=== PATIENT | female | born 1955 | race Caucasian/White ===

== ENCOUNTER 2018-05-01 14:45 | Emergency (ER) | payer MEDICARE, OTHER ==
[~2018-05-01] VITALS: Ht 165.1 cm; Wt 72.8 kg
[~2018-05-01 14:45] MED LIST: ACYC200C PO; ALBU8.5H8 INH; BECL8.7A7 INH; CARB15DR EACHEYE; DULO-31 PO; HYDR-3972 PO; LEVE250T PO; LISI10TA4 PO; METO5TAB98 PO; PANT-47 PO; PHEN32.43 PO; PRAZ5CAP2 PO; TOP100T PO; VAL5T PO; VERA120T96 PO
[2018-05-01 14:49] VITALS: BP 159/95
[2018-05-01] MEDS ORDERED: HYDROcodone/acetaminophen 10/325mg tab PO ONE (16:15)
== END 2018-05-01 16:22 | disposition home or self-care (01) ==
LOC: ER 14:45
DX: M71.21 Synovial cyst of popliteal space [Baker], right knee (principal); I10 Essential (primary) hypertension; G89.29 Other chronic pain; E11.9 Type 2 diabetes mellitus without complications; F12.90 Cannabis use, unspecified, uncomplicated; Z86.73 Personal history of transient ischemic attack (TIA), and cerebral infarction without residual deficits; Z98.890 Other specified postprocedural states; Z88.1 Allergy status to other antibiotic agents; Z91.040 Latex allergy status; Z88.8 Allergy status to other drugs, medicaments and biological substances; Z79.899 Other long term (current) drug therapy
CPT/HCPCS: 93971; 99284

== ENCOUNTER 2018-08-14 09:56 | Day surgery (SDC) | payer MEDICARE, MEDICAID ==
[2018-08-14] MEDS ORDERED: DESV100T PO (11:24)
[2018-08-14] MEDS ORDERED: ONDA8TAB9 PO (11:26)
[2018-08-14] MEDS ORDERED: LIDOcaine/PRILOcaine 5gm cream TP ONE ×2 (11:28→11:58)
== END 2018-08-14 12:55 | disposition home or self-care (01) ==
LOC: WOUND CARE 09:56
PROVIDERS: ATTEND Surgery
DX: T21.35XA Burn of third degree of buttock, initial encounter (principal); S31.819A Unspecified open wound of right buttock, initial encounter; E11.9 Type 2 diabetes mellitus without complications; I10 Essential (primary) hypertension; G89.29 Other chronic pain; F12.90 Cannabis use, unspecified, uncomplicated; Z79.899 Other long term (current) drug therapy; Z86.73 Personal history of transient ischemic attack (TIA), and cerebral infarction without residual deficits; X08.8XXA Exposure to other specified smoke, fire and flames, initial encounter; X58.XXXA Exposure to other specified factors, initial encounter; Y93.89 Activity, other specified; Y92.89 Other specified places as the place of occurrence of the external cause; Y99.8 Other external cause status
CPT/HCPCS: 11042; A6223; A6021; A6212

== ENCOUNTER 2018-08-21 10:15 | Outpatient (CLI) | payer MEDICARE, MEDICAID ==
[~2018-08-21 10:15] MED LIST changes: -CARB15DR EACHEYE; +DESV100T PO; -DULO-31 PO; -HYDR-3972 PO; -LEVE250T PO; +ONDA8TAB9 PO; -PANT-47 PO; -PHEN32.43 PO; -PRAZ5CAP2 PO; -VAL5T PO
== END 2018-08-21 11:08 | disposition home or self-care (01) ==
LOC: WOUND CARE 10:15
PROVIDERS: ATTEND Surgery
DX: T21.35XD Burn of third degree of buttock, subsequent encounter (principal); S31.819D Unspecified open wound of right buttock, subsequent encounter; E11.9 Type 2 diabetes mellitus without complications; I10 Essential (primary) hypertension; G89.29 Other chronic pain; F12.90 Cannabis use, unspecified, uncomplicated; Z79.899 Other long term (current) drug therapy; Z86.73 Personal history of transient ischemic attack (TIA), and cerebral infarction without residual deficits; X08.8XXD Exposure to other specified smoke, fire and flames, subsequent encounter; X58.XXXD Exposure to other specified factors, subsequent encounter
CPT/HCPCS: 99211; A6223; A6021; A6213

== ENCOUNTER 2018-08-30 08:47 | Day surgery (SDC) | payer MEDICARE, MEDICAID ==
[2018-08-30] MEDS ORDERED: LIDOcaine 2% 5ml jelly MM ONE (11:50)
== END 2018-08-30 10:22 | disposition home or self-care (01) ==
LOC: WOUND CARE 08:47
PROVIDERS: ATTEND Surgery
DX: T21.35XD Burn of third degree of buttock, subsequent encounter (principal); S31.819D Unspecified open wound of right buttock, subsequent encounter; E11.9 Type 2 diabetes mellitus without complications; I10 Essential (primary) hypertension; G89.29 Other chronic pain; F12.90 Cannabis use, unspecified, uncomplicated; Z79.899 Other long term (current) drug therapy; Z86.73 Personal history of transient ischemic attack (TIA), and cerebral infarction without residual deficits; X08.8XXD Exposure to other specified smoke, fire and flames, subsequent encounter; X58.XXXD Exposure to other specified factors, subsequent encounter
CPT/HCPCS: 97597; A6021; A6206; A6212

== ENCOUNTER 2018-09-06 08:25 | Day surgery (SDC) | payer MEDICARE, MEDICAID ==
[2018-09-06] MEDS ORDERED: LIDOcaine/PRILOcaine 5gm cream TP ONE (09:54)
== END 2018-09-06 10:44 | disposition home or self-care (01) ==
LOC: WOUND CARE 08:25
PROVIDERS: ATTEND Surgery
DX: T21.35XD Burn of third degree of buttock, subsequent encounter (principal); S31.819D Unspecified open wound of right buttock, subsequent encounter; E11.9 Type 2 diabetes mellitus without complications; I10 Essential (primary) hypertension; G89.29 Other chronic pain; F12.90 Cannabis use, unspecified, uncomplicated; Z79.899 Other long term (current) drug therapy; Z86.73 Personal history of transient ischemic attack (TIA), and cerebral infarction without residual deficits; X08.8XXD Exposure to other specified smoke, fire and flames, subsequent encounter; X58.XXXD Exposure to other specified factors, subsequent encounter
CPT/HCPCS: 97597; A6021; A6212

== ENCOUNTER 2018-09-07 14:44 | Inpatient (IN) | payer MEDICARE, MEDICAID ==
[~2018-09-07] VITALS: Ht 167.6 cm; Wt 64.0 kg
[2018-09-07] MEDS ORDERED: levetiracetam inj 1,000 MG in normal saline 100ml IV soln 90 ML IV ONE (14:55)
[2018-09-07] MEDS ORDERED: normal saline 1000ML IV soln IV ONE (14:55)
[2018-09-07 15:08] LABS: BASOPHILS % (AUTO) 0.4 % (0-1); EOSINOPHILS # (AUTO) 0.3 X10'3 (0-0.9); EOSINOPHILS % (AUTO) 2.8 % (0-6); HEMATOCRIT 41.8 % (35.0-45.0); HEMOGLOBIN 13.4 g/dl (12.0-16.0); LYMPHOCYTES # (AUTO) 2.8 X10'3 (1.1-4.8); LYMPHOCYTES % (AUTO) 31.8 % (21-51); MEAN CORPUSCULAR HEMOGLOBIN 31.4 PG (27.0-31.0); MEAN CORPUSCULAR HGB CONC 32.1 % (33.0-36.5); MEAN CORPUSCULAR VOLUME 97.6 FL (78-98); MEAN PLATELET VOLUME 9.9 FL (7.4-10.4); MONOCYTES # (AUTO) 0.6 X10'3 (0-0.9); MONOCYTES % (AUTO) 6.3 % (2-12); NEUTROPHILS # (AUTO) 5.3 X10'3 (1.8-7.7); NEUTROPHILS % (AUTO) 58.7 % (42-75); PLATELET COUNT 211 X10'3 (140-440); RED BLOOD COUNT 4.28 X10'6 (4.20-5.60); RED CELL DISTRIBUTION WIDTH 14.4 % (11.5-14.5)
[2018-09-07 15:26] LABS: PARTIAL THROMBOPLASTIN TIME 27 SECONDS (22-32); PROTHROMBIN TIME 10.2 SECONDS (9.0-12.0)
[2018-09-07 15:27] LABS: ALANINE AMINOTRANSFERASE 22 U/L (12-78); ALBUMIN 3.3 G/DL (3.4-5.0); ALBUMIN/GLOBULIN RATIO 0.9 (1.1-1.5); ALKALINE PHOSPHATASE 88 IU/L (46-116); ANION GAP 14 (8-16); ASPARTATE AMINO TRANSFERASE 15 U/L (10-37); BILIRUBIN,TOTAL 0.3 MG/DL (0.1-1.0); BLOOD UREA NITROGEN 13 MG/DL (7-18); BUN/CREATININE RATIO 18.8 (6.6-38.0); CALCIUM 8.3 MG/DL (8.5-10.1); CHLORIDE 108 MMOL/L (99-107); CREATININE 0.69 MG/DL (0.40-0.90); GLUCOSE 108 MG/DL (70-104); MAGNESIUM 1.8 MG/DL (1.5-2.4); POTASSIUM 3.6 MMOL/L (3.5-5.1); SODIUM 142 MMOL/L (135-145); TOTAL CARBON DIOXIDE 19.9 MMOL/L (24-32); TOTAL PROTEIN 6.8 G/DL (6.4-8.2); eGFR 86 ML/MIN
--- NOTE | 2018-09-07 15:37 | NUR ---
PAGED CT 1770
[2018-09-07 16:20] LABS: CLARITY,URINE SLIGHTLY CLOUDY (Clear); COLOR,URINE YELLOW (Yellow); GLUCOSE, URINE NEGATIVE (Neg); KETONES,URINE NEGATIVE (Neg); LEUKOCYTE ESTERASE ,URINE NEGATIVE (Neg); NITRITES, URINE NEGATIVE (Neg); OCCULT BLOOD,URINE NEGATIVE (Neg); PROTEIN,URINE NEGATIVE (Neg); UROBILINOGEN,URINE 0.2 E.U/dL (0.2-1.0)
[2018-09-07 16:25] LABS: UA COLLECTION TYPE CLN CATCH MIDSTREAM
[2018-09-07 16:34] LABS: AMORPHOUS PHOSPHATES 1+; BACTERIA,URINE NONE SEEN /HPF (Neg); RBC,URINE NONE SEEN /HPF (0-2); SQUAMOUS EPITHELIAL CELL,UR FEW /LPF (FEW); WBC,URINE 0-4 /HPF (0-4)
[2018-09-07] MEDS ORDERED: ondansetron/PF 4mg/2ml inj IV ONE (16:50)
[2018-09-07] MEDS ORDERED: LORazepam 2 mg/ml vial ONE ×2 (17:25→19:54)
[2018-09-07] MEDS ORDERED: LORazepam 2 mg/ml vial IV ONE ×2 (17:25→20:00)
--- NOTE | 2018-09-07 17:56 | NUR ---
PATIENT HAS HAD THREE SEZUIRES SINCE BEING IN ER LASTING ROUGHLY 60 SECS
[2018-09-07] MEDS ORDERED: ketorolac trometh. 30mg/ml inj. IV ONE (18:00)
[2018-09-07] MEDS ORDERED: magnesium hydroxide 30ml (MOM) UD suspension PO PRN (18:05)
[2018-09-07] MEDS ORDERED: acetaminophen 325mg tablet PO PRN ×2 (18:05)
[2018-09-07] MEDS ORDERED: ondansetron/PF 4mg/2ml inj IV PRN (18:05)
[2018-09-07] MEDS ORDERED: potassium Cl 20 mEq SR tablet PO PRN ×2 (18:05)
[2018-09-07] MEDS: morphine 4 MG/ML inj SYRINge IV PRN ×2 (18:37→23:56)
--- NOTE | 2018-09-07 19:53 | NUR ---
Patient received from ER and placed in room CICU 2006. I have received report from CORINNA Sandra and had the opportunity to ask questions and assume patient care.
[2018-09-07] MEDS ORDERED: LORazepam 2 mg/ml vial IM ONE (19:55)
[2018-09-07 20:00] VITALS: BP 143/90
--- NOTE | 2018-09-07 20:05 | NUR ---
Patient had conic tonic seizure lasting 30 seconds with 4-5 minute postictal period. Ativan 2mg was given. Will continue monitor.
[2018-09-07] MEDS: HYDROcodone/acetaminophen 10/325mg tab PO PRN (20:51)
[2018-09-07 21:00] VITALS: BP 173/89
[2018-09-07 22:00] VITALS: BP 154/74
[2018-09-07 23:00] VITALS: BP 152/88
[2018-09-07] MEDS ORDERED: LORazepam 2 mg/ml vial IV PRN (23:35)
--- NOTE | 2018-09-07 23:45 | NUR ---
Patient had two seizures last two minutes each with a 30 second pause in between and five minute postictal period. Ativan was given for seizures and morphine was given for her headache. Will continue to monitor.
[2018-09-08] VITALS (23 sets, daily range): BP systolic 101–169; BP diastolic 58–95
[2018-09-08] MEDS: LORazepam 2 mg/ml vial IV PRN ×3 (01:52→22:03)
--- NOTE | 2018-09-08 04:22 | NUR ---
Patient was given Ativan for seizure like activity. 1 minute of activity with a 30 second pause, followed by another minute of seizure like activity. A couple of minutes later she had 20 seconds of seizure like activity. Patients extremities became really rigid during this time, arms pulled up towards her chin, eyes rolled back and to the right, and was clenching her teeth with occasional lip smacking. Patient's postictal period last 5 minutes then fell asleep. Will continue to monitor.
[2018-09-08 05:39] LABS: BASOPHILS % (AUTO) 0.3 % (0-1); EOSINOPHILS # (AUTO) 0.2 X10'3 (0-0.9); EOSINOPHILS % (AUTO) 3.1 % (0-6); HEMATOCRIT 37.2 % (35.0-45.0); HEMOGLOBIN 12.1 g/dl (12.0-16.0); LYMPHOCYTES # (AUTO) 1.3 X10'3 (1.1-4.8); LYMPHOCYTES % (AUTO) 22.2 % (21-51); MEAN CORPUSCULAR HEMOGLOBIN 31.4 PG (27.0-31.0); MEAN CORPUSCULAR HGB CONC 32.4 % (33.0-36.5); MEAN CORPUSCULAR VOLUME 96.8 FL (78-98); MEAN PLATELET VOLUME 9.9 FL (7.4-10.4); MONOCYTES # (AUTO) 0.5 X10'3 (0-0.9); MONOCYTES % (AUTO) 8.4 % (2-12); NEUTROPHILS # (AUTO) 3.8 X10'3 (1.8-7.7); PLATELET COUNT 171 X10'3 (140-440); RED BLOOD COUNT 3.84 X10'6 (4.20-5.60); RED CELL DISTRIBUTION WIDTH 14.5 % (11.5-14.5); WHITE BLOOD COUNT 5.7 X10'3 (4.5-11.0)
[2018-09-08 05:57] LABS: ALBUMIN 2.9 G/DL (3.4-5.0); ANION GAP 10 (8-16); BLOOD UREA NITROGEN 12 MG/DL (7-18); BUN/CREATININE RATIO 17.1 (6.6-38.0); CALCIUM 7.6 MG/DL (8.5-10.1); CHLORIDE 110 MMOL/L (99-107); GLUCOSE 90 MG/DL (70-104); MAGNESIUM 1.9 MG/DL (1.5-2.4); POTASSIUM 3.6 MMOL/L (3.5-5.1); SODIUM 142 MMOL/L (135-145); eGFR 85 ML/MIN
[2018-09-08 06:04] LABS: PROTHROMBIN TIME 10.5 SECONDS (9.0-12.0)
--- NOTE | 2018-09-08 06:30 | NUR ---
Patient in room CICU 2007. I have received report from CORINNA Leslie and had the opportunity to ask questions and assume patient care.
--- NOTE | 2018-09-08 06:49 | NUR ---
Problems reprioritized. Patient report given, questions answered & plan of care reviewed with CORINNA Schmitz.
[2018-09-08] MEDS: levetiracetam 250mg tablet PO SCH ×2 (08:16→19:56)
[2018-09-08] MEDS ORDERED: KEP500T PO (08:25)
[2018-09-08] MEDS ORDERED: LEVE250T4 PO (08:26)
[2018-09-08] MEDS: HYDROcodone/acetaminophen 10/325mg tab PO PRN ×2 (15:01→21:15)
[2018-09-08] MEDS: PRISTIQ 100 MG PO SCH (18:58)
[2018-09-08] MEDS: morphine 4 MG/ML inj SYRINge IV PRN (20:07)
[2018-09-09] VITALS (24 sets, daily range): BP systolic 100–153; BP diastolic 46–88
[2018-09-09] MEDS: morphine 4 MG/ML inj SYRINge IV PRN ×5 (03:17→22:28)
--- NOTE | 2018-09-09 06:30 | NUR ---
Patient in room CICU 2007. I have received report from CORINNA Leslie and had the opportunity to ask questions and assume patient care.
--- NOTE | 2018-09-09 06:51 | NUR ---
Problems reprioritized. Patient report given, questions answered & plan of care reviewed with CORINNA Brooks.
[2018-09-09 07:20] LABS: BASOPHILS % (AUTO) 0.6 % (0-1); EOSINOPHILS # (AUTO) 0.4 X10'3 (0-0.9); EOSINOPHILS % (AUTO) 8.7 % (0-6); HEMATOCRIT 37.3 % (35.0-45.0); HEMOGLOBIN 12.6 g/dl (12.0-16.0); LYMPHOCYTES # (AUTO) 1.6 X10'3 (1.1-4.8); LYMPHOCYTES % (AUTO) 33.6 % (21-51); MEAN CORPUSCULAR HEMOGLOBIN 33.1 PG (27.0-31.0); MEAN CORPUSCULAR HGB CONC 33.7 % (33.0-36.5); MEAN CORPUSCULAR VOLUME 98.2 FL (78-98); MEAN PLATELET VOLUME 10.1 FL (7.4-10.4); MONOCYTES # (AUTO) 0.4 X10'3 (0-0.9); MONOCYTES % (AUTO) 7.3 % (2-12); NEUTROPHILS # (AUTO) 2.5 X10'3 (1.8-7.7); NEUTROPHILS % (AUTO) 49.8 % (42-75); PLATELET COUNT 171 X10'3 (140-440); RED CELL DISTRIBUTION WIDTH 13.3 % (11.5-14.5); WHITE BLOOD COUNT 4.9 X10'3 (4.5-11.0)
[2018-09-09 07:26] LABS: ALBUMIN 2.9 G/DL (3.4-5.0); ANION GAP 10 (8-16); BLOOD UREA NITROGEN 18 MG/DL (7-18); BUN/CREATININE RATIO 29.5 (6.6-38.0); CALCIUM 8.1 MG/DL (8.5-10.1); CHLORIDE 109 MMOL/L (99-107); CREATININE 0.61 MG/DL (0.40-0.90); GLUCOSE 83 MG/DL (70-104); POTASSIUM 3.6 MMOL/L (3.5-5.1); SODIUM 142 MMOL/L (135-145); TOTAL CARBON DIOXIDE 22.8 MMOL/L (24-32); eGFR > 90 ML/MIN
[2018-09-09 07:40] LABS: PROTHROMBIN TIME 10.3 SECONDS (9.0-12.0)
[2018-09-09] MEDS: LORazepam 2 mg/ml vial IV PRN ×2 (07:57→23:07)
[2018-09-09] MEDS: PRISTIQ 100 MG PO SCH (08:00)
[2018-09-09] MEDS: levetiracetam 250mg tablet PO SCH ×2 (08:02→19:42)
--- NOTE | 2018-09-09 13:45 | NUR ---
Accompanied patient throughout MRI, patient had one tonic clonic seizure @1255, 3 minutes long. Patient given 2mg ativan IV. Patient had another seizure @ 1328, 2 minutes long. Hands clenched, held up to chest, teeth grinding, body stiff. HR and RR within normal limits. Patient aware of seizure. Arousable by name. Patient rushed back to room 2006 on ICU after second seizure post MRI.
--- NOTE | 2018-09-09 15:00 | NUR ---
informed dr. diaz about MRI results, no new orders given.
--- NOTE | 2018-09-09 18:30 | NUR ---
Problems reprioritized. Patient report given, questions answered & plan of care reviewed with CORINNA KEITH.
--- NOTE | 2018-09-09 18:57 | NUR ---
Patient in room CICU 2006. I have received report from Yoana WEINSTEIN and had the opportunity to ask questions and assume patient care.
[2018-09-09] MEDS: HYDROcodone/acetaminophen 10/325mg tab PO PRN (19:42)
--- NOTE | 2018-09-09 20:00 | NUR ---
Pt. appears fatigued and moderately lethargic. Assisted to sit up in bed to eat meal. Appetite is good. Taking PO fluids well. No seizure activity noted. Pt. is calm and sleeping interm. Repositioned f/comfort. C/O constant, severe head pain.
--- NOTE | 2018-09-09 21:35 | NUR ---
Patient in room CICU 2010. I have received report from Nanci WEINSTEIN and had the opportunity to ask questions and assume patient care. Patient transferred from room 2006 to 2010 via hospital bed, patient tolerated well.
--- NOTE | 2018-09-09 22:09 | NUR ---
Problems reprioritized. Patient report given, questions answered & plan of care reviewed with Emelina WEINSTEIN.
[2018-09-10] VITALS (23 sets, daily range): BP systolic 112–163; BP diastolic 8–90
[2018-09-10] MEDS: HYDROcodone/acetaminophen 10/325mg tab PO PRN ×2 (02:56→19:12)
--- NOTE | 2018-09-10 03:05 | NUR ---
Patient awake, asking for pain medication. HR in low 60s in sinus rhythm, patient oriented to time/place. Patient fell back asleep easily after taking norco. Will continue to monitor for seizure activity.
[2018-09-10] MEDS: morphine 4 MG/ML inj SYRINge IV PRN (05:09)
[2018-09-10 05:57] LABS: BASOPHILS % (AUTO) 0.6 % (0-1); EOSINOPHILS # (AUTO) 0.4 X10'3 (0-0.9); EOSINOPHILS % (AUTO) 7.4 % (0-6); HEMATOCRIT 37.7 % (35.0-45.0); HEMOGLOBIN 12.3 g/dl (12.0-16.0); LYMPHOCYTES # (AUTO) 1.9 X10'3 (1.1-4.8); LYMPHOCYTES % (AUTO) 34.7 % (21-51); MEAN CORPUSCULAR HEMOGLOBIN 32.1 PG (27.0-31.0); MEAN CORPUSCULAR HGB CONC 32.6 % (33.0-36.5); MEAN CORPUSCULAR VOLUME 98.3 FL (78-98); MEAN PLATELET VOLUME 10.1 FL (7.4-10.4); MONOCYTES # (AUTO) 0.4 X10'3 (0-0.9); MONOCYTES % (AUTO) 7.8 % (2-12); NEUTROPHILS # (AUTO) 2.7 X10'3 (1.8-7.7); NEUTROPHILS % (AUTO) 49.5 % (42-75); PLATELET COUNT 165 X10'3 (140-440); RED BLOOD COUNT 3.83 X10'6 (4.20-5.60); RED CELL DISTRIBUTION WIDTH 13.6 % (11.5-14.5); WHITE BLOOD COUNT 5.4 X10'3 (4.5-11.0)
--- NOTE | 2018-09-10 06:23 | NUR ---
Patient in room CICU 2010. I have received report from Katelyn and had the opportunity to ask questions and assume patient care.
[2018-09-10 06:27] LABS: ALBUMIN 2.9 G/DL (3.4-5.0); ANION GAP 10 (8-16); BLOOD UREA NITROGEN 19 MG/DL (7-18); BUN/CREATININE RATIO 28.4 (6.6-38.0); CHLORIDE 110 MMOL/L (99-107); CREATININE 0.67 MG/DL (0.40-0.90); GLUCOSE 84 MG/DL (70-104); POTASSIUM 3.5 MMOL/L (3.5-5.1); SODIUM 144 MMOL/L (135-145); TOTAL CARBON DIOXIDE 23.7 MMOL/L (24-32); eGFR 89 ML/MIN
--- NOTE | 2018-09-10 06:32 | NUR ---
Problems reprioritized. Patient report given, questions answered & plan of care reviewed with Estephania WEINSTEIN. Addendum: 09/10/18 at 2210 by Katelyn Morse RN Report given to Anabel WEINSTEIN, doug Best
[2018-09-10 06:43] LABS: PROTHROMBIN TIME 10.5 SECONDS (9.0-12.0)
[2018-09-10] MEDS: LORazepam 2 mg/ml vial IV PRN ×4 (08:30→20:46)
--- NOTE | 2018-09-10 08:39 | NUR ---
0825 pt sitting up in bed, groaning, drooling, pt unable to communicate with me, suctioned oral airway, patient chin noted to have rhythmic contractions, bilateral arms decorticate, administered 2mg ativan, 0831 pt relaxed, said "I'm sorry", no recollection of this am, or place. Pt tearful. Reoriented to room, vs stable.
[2018-09-10] MEDS: levetiracetam 250mg tablet PO SCH ×2 (09:44→19:12)
[2018-09-10] MEDS: PRISTIQ 100 MG PO SCH (09:55)
[2018-09-10] MEDS ORDERED: FOSphenytoin 100mg/2ml inj IV ONE (10:15)
[2018-09-10] MEDS ORDERED: FOSphenytoin 500mg inj. 1,000 MG in normal saline 100ml IV soln 80 ML IV ONE (10:35)
--- NOTE | 2018-09-10 10:49 | NUR ---
1025 after changing pts bedding, seizure activity began, unable to speak, hands in fists, decorticate hands/wrists, K Genna COPE and Dr Napoles at bedside, seizure witnessed. Plan is to d/c Pristiq at this time, due to serotonin uptake inhibitor and norepinephrine inducer, thereby lowering the seizure threshold. Adding cerebyx to medication regime. No beds available to transfer to [facility]. Plan is treat medically, control seizures.
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
--- NOTE | 2018-09-10 18:31 | NUR ---
Problems reprioritized. Patient report given, questions answered & plan of care reviewed with Katelyn.
[2018-09-10] MEDS: FOSphenytoin 100mg/2ml inj IV SCH (19:13)
[2018-09-10] MEDS: hydrOXYzine 10 MG tablet PO PRN (22:40)
--- NOTE | 2018-09-10 23:30 | NUR ---
Walked in to patient's room, found patient laying on her side with PIV pulled out of her L finger. Cannula intact. No active bleeding noted. Will continue to monitor patient.
[2018-09-11] VITALS (24 sets, daily range): BP systolic 113–159; BP diastolic 60–92
[2018-09-11] MEDS: FOSphenytoin 100mg/2ml inj IV SCH ×3 (03:51→20:00)
[2018-09-11] MEDS: HYDROcodone/acetaminophen 10/325mg tab PO PRN ×3 (03:52→16:24)
[2018-09-11 06:06] LABS: BASOPHILS % (AUTO) 0.4 % (0-1); EOSINOPHILS # (AUTO) 0.5 X10'3 (0-0.9); EOSINOPHILS % (AUTO) 8.3 % (0-6); HEMATOCRIT 36.2 % (35.0-45.0); HEMOGLOBIN 12.1 g/dl (12.0-16.0); LYMPHOCYTES # (AUTO) 2.1 X10'3 (1.1-4.8); LYMPHOCYTES % (AUTO) 39.1 % (21-51); MEAN CORPUSCULAR HEMOGLOBIN 32.8 PG (27.0-31.0); MEAN CORPUSCULAR HGB CONC 33.3 % (33.0-36.5); MEAN CORPUSCULAR VOLUME 98.3 FL (78-98); MONOCYTES # (AUTO) 0.5 X10'3 (0-0.9); MONOCYTES % (AUTO) 9.6 % (2-12); NEUTROPHILS # (AUTO) 2.3 X10'3 (1.8-7.7); NEUTROPHILS % (AUTO) 42.6 % (42-75); PLATELET COUNT 183 X10'3 (140-440); RED BLOOD COUNT 3.68 X10'6 (4.20-5.60); WHITE BLOOD COUNT 5.4 X10'3 (4.5-11.0)
--- NOTE | 2018-09-11 06:17 | NUR ---
Problems reprioritized. Patient report given, questions answered & plan of care reviewed with Anabel WEINSTEIN.
[2018-09-11 06:28] LABS: ANION GAP 8 (8-16); BLOOD UREA NITROGEN 19 MG/DL (7-18); BUN/CREATININE RATIO 24.1 (6.6-38.0); CALCIUM 8.4 MG/DL (8.5-10.1); CHLORIDE 109 MMOL/L (99-107); CREATININE 0.79 MG/DL (0.40-0.90); GLUCOSE 90 MG/DL (70-104); POTASSIUM 3.7 MMOL/L (3.5-5.1); SODIUM 143 MMOL/L (135-145); TOTAL CARBON DIOXIDE 25.6 MMOL/L (24-32); eGFR 74 ML/MIN
[2018-09-11 06:34] LABS: PROTHROMBIN TIME 10.4 SECONDS (9.0-12.0)
[2018-09-11] MEDS: levetiracetam 250mg tablet PO SCH ×2 (07:46→20:30)
[2018-09-11] MEDS: hydrOXYzine 10 MG tablet PO PRN (09:56)
--- NOTE | 2018-09-11 10:28 | NUR ---
Spoke with Sakina (lives with patient, also nurse at [facility]), patient needs a commode upon discharge, also Sakina will be out of town until after 5 pm on , patients caregiver Shelby would be available to give patient a ride home if discharged after 1pm Tuesday but is unavailble for patient all day .
--- NOTE | 2018-09-11 12:34 | NUR ---
1140 PIV in Right arm infiltrated after cerebyx injection. PICC nurse here to place ext PIV, Pt started having a seizure at 1150, hands/wrists turned decorticate, rhythmic contractions at chin, lasting 4min, administered ativan via new IV as another seizure began at 1200. Pt came out of that after 2 minutes. Pt alert and calm.
--- NOTE | 2018-09-11 14:10 | NUR ---
Dr Torres rounded- add phosphorus to am labs, add lexapro at starting rate if does not lower seizure threshold, spoke with pharmacy, auto sub is celexa, celexa has a <1% rate of lowering threshold with the caveat that if seizure occurs it can be severe.
[2018-09-11 14:36] LABS: PHOSPHORUS 4.1 MG/DL (2.3-4.5)
--- NOTE | 2018-09-11 18:34 | NUR ---
Patient in room CICU 2010. I have received report from Anabel WEINSTEIN and had the opportunity to ask questions and assume patient care. Patient resting in bed with eyes closed, breathing even and unlabored with rate at 12 breaths/min, saturating at 97% on RA. Will continue to monitor patient.
[2018-09-11] MEDS: morphine 4 MG/ML inj SYRINge IV PRN (20:04)
[2018-09-11] MEDS: LORazepam 2 mg/ml vial IV PRN (20:15)
--- NOTE | 2018-09-11 20:17 | NUR ---
Patient visually upset, states she is "mad at my situation" after being incontinent on the bed. During medication administration, patient had seizure lasting 90 seconds. Woke up alert and oriented after postictal stage, c/o headache. Will continue to monitor.
[2018-09-12] VITALS (24 sets, daily range): BP systolic 94–167; BP diastolic 56–110
--- NOTE | 2018-09-12 00:37 | NUR ---
Patient resting in bed, sleeping comfortably. No changes in patient condition. Will continue to monitor.
[2018-09-12] MEDS: HYDROcodone/acetaminophen 10/325mg tab PO PRN ×3 (03:22→17:04)
[2018-09-12] MEDS: FOSphenytoin 100mg/2ml inj IV SCH ×3 (03:23→20:02)
[2018-09-12 03:50] LABS: BASOPHILS % (AUTO) 0.7 % (0-1); EOSINOPHILS # (AUTO) 0.5 X10'3 (0-0.9); EOSINOPHILS % (AUTO) 9.1 % (0-6); HEMATOCRIT 37.2 % (35.0-45.0); HEMOGLOBIN 12.3 g/dl (12.0-16.0); LYMPHOCYTES # (AUTO) 2.4 X10'3 (1.1-4.8); LYMPHOCYTES % (AUTO) 42.8 % (21-51); MEAN CORPUSCULAR HEMOGLOBIN 32.3 PG (27.0-31.0); MEAN CORPUSCULAR HGB CONC 33.2 % (33.0-36.5); MEAN CORPUSCULAR VOLUME 97.3 FL (78-98); MEAN PLATELET VOLUME 9.4 FL (7.4-10.4); MONOCYTES # (AUTO) 0.5 X10'3 (0-0.9); MONOCYTES % (AUTO) 8.5 % (2-12); NEUTROPHILS # (AUTO) 2.2 X10'3 (1.8-7.7); NEUTROPHILS % (AUTO) 38.9 % (42-75); PLATELET COUNT 185 X10'3 (140-440); RED BLOOD COUNT 3.82 X10'6 (4.20-5.60); RED CELL DISTRIBUTION WIDTH 13.4 % (11.5-14.5); WHITE BLOOD COUNT 5.6 X10'3 (4.5-11.0)
[2018-09-12 04:06] LABS: PROTHROMBIN TIME 10.3 SECONDS (9.0-12.0)
[2018-09-12 04:23] LABS: ALBUMIN 2.9 G/DL (3.4-5.0); ANION GAP 10 (8-16); BLOOD UREA NITROGEN 19 MG/DL (7-18); BUN/CREATININE RATIO 26.4 (6.6-38.0); CALCIUM 8.1 MG/DL (8.5-10.1); CHLORIDE 109 MMOL/L (99-107); CREATININE 0.72 MG/DL (0.40-0.90); GLUCOSE 85 MG/DL (70-104); MAGNESIUM 1.9 MG/DL (1.5-2.4); PHOSPHORUS 3.9 MG/DL (2.3-4.5); POTASSIUM 3.9 MMOL/L (3.5-5.1); SODIUM 146 MMOL/L (135-145); TOTAL CARBON DIOXIDE 26.6 MMOL/L (24-32); eGFR 82 ML/MIN
--- NOTE | 2018-09-12 04:30 | NUR ---
Patient requesting to sit in chair and bath herself. Patient assisted to chair with two person minimum assist, patient slightly unsteady but able to pivot onto chair. Patient then assisted back to bed with call light and belongings in reach. Will continue to monitor patient
--- NOTE | 2018-09-12 06:28 | NUR ---
Problems reprioritized. Patient report given, questions answered & plan of care reviewed with Maritza WEINSTEIN.
--- NOTE | 2018-09-12 06:30 | NUR ---
Patient in room CICU 2010. I have received report from CORINNA Zepeda and had the opportunity to ask questions and assume patient care.
[2018-09-12] MEDS: CITALOpram 10mg tablet PO SCH (08:36)
[2018-09-12] MEDS: levetiracetam 250mg tablet PO SCH ×2 (08:37→20:01)
--- NOTE | 2018-09-12 08:50 | NUR ---
RN at bedside with pt and witnessed seizure activity. arms contracted to chest, eyes twitching, pt was moaning during the duration of the seizure. ativan was given. seizure lasted for about 30 second. pt returned to postictal phase.
[2018-09-12] MEDS: LORazepam 2 mg/ml vial IV PRN ×3 (08:51→20:42)
--- NOTE | 2018-09-12 11:20 | NUR ---
Dr. Sánchez arrived on unit and assessed pt, updated on two witnessed seizure activities this am, about 30sec each. Neurology consult order received and carbon paste mixer operator stroke RN Briseida called, RN updated her on pts PMH and status. will try to get a neurologist to come and see her.
[2018-09-12] MEDS ORDERED: albuterol 2.5 MG/3 ML nebule NEB PRN (11:30)
--- NOTE | 2018-09-12 13:30 | NUR ---
pt had 50-75% lunch independently. incont urine x1. pt insisted on getting out of bed to chair. pt voided in bedside commode x1. RN ambulated pt around room with one assist per pt request. When returned back to bed, pt had another episode of petite mal seizure in bed for about 4min. ativan given, RN at bedside. pt returned to postidal phase after. Dr. sánchez at bedside seizure. tele-neuro consulted and waiting for call back. Dr. Sánchez will call Dr. Calderon for shunt revision consult.
--- NOTE | 2018-09-12 13:58 | NUR ---
Initial: Pt admit w/ recurrent seizures following med changes per MD note. 2 seizures last night w/ 1 today per RN. Meds changed back to what pt was taking initially and pending neuro consult. PO 0-25% mechanical soft meals w/ AOx3; likely r/t seizures. Will monitor for ONS needs. Rec: 1. continue mechanical soft diet 2. monitor for ONS needs 3. wt per rx Addendum: 09/12/18 at [address] Amended: Links added.
--- NOTE | 2018-09-12 18:30 | NUR ---
Problems reprioritized. Patient report given, questions answered & plan of care reviewed with CORINNA Bob.
--- NOTE | 2018-09-12 18:31 | NUR ---
Patient in room CICU 2010. I have received report from Maritza WEINSTEIN and had the opportunity to ask questions and assume patient care.
[2018-09-12] MEDS: morphine 4 MG/ML inj SYRINge IV PRN (18:43)
--- NOTE | 2018-09-12 18:48 | NUR ---
patient assessed at change of shift and is complaining of a stabbing headache. she reports it has been ongoing for her and the needs to have the norco and the morphine alternated to help with the pain. reports pain 10/10. not localized to any particular area of the head, but does report that it is radiating to jaw and still has ringing in L ear. morphine given at this time. will reassess pain in a bit.
[2018-09-12] MEDS: budesonide 0.5mg/2ml UD nebule IH SCH (19:56)
--- NOTE | 2018-09-12 20:47 | NUR ---
patient had seizure at 20:19. it lasted approx 4-5 minutes. patient has participating in a bed bath at the time. she was sitting on the commode and was washing her own face when the seizure started. Ativan 2mg was given at 20:22, and patient stopped seizing in about 30 seconds after administration. she instantly became very tearful and appeared to almost be fearful. she would not respond to questions so level of orientation is difficult to assess. she was comforted and quickly fell asleep. she is sleeping now. continue to monitor.
[2018-09-12] MEDS: hydrOXYzine 10 MG tablet PO PRN (21:44)
[2018-09-13] VITALS (23 sets, daily range): BP systolic 102–164; BP diastolic 62–101
[2018-09-13] MEDS: FOSphenytoin 100mg/2ml inj IV SCH (04:08)
[2018-09-13] MEDS: morphine 4 MG/ML inj SYRINge IV PRN ×3 (04:08→19:40)
[2018-09-13 04:51] LABS: BASOPHILS % (AUTO) 0.5 % (0-1); EOSINOPHILS # (AUTO) 0.5 X10'3 (0-0.9); EOSINOPHILS % (AUTO) 8.9 % (0-6); HEMATOCRIT 37.9 % (35.0-45.0); HEMOGLOBIN 12.6 g/dl (12.0-16.0); LYMPHOCYTES # (AUTO) 2.5 X10'3 (1.1-4.8); LYMPHOCYTES % (AUTO) 44.3 % (21-51); MEAN CORPUSCULAR HEMOGLOBIN 32.6 PG (27.0-31.0); MEAN CORPUSCULAR HGB CONC 33.2 % (33.0-36.5); MEAN CORPUSCULAR VOLUME 98.1 FL (78-98); MEAN PLATELET VOLUME 9.9 FL (7.4-10.4); MONOCYTES # (AUTO) 0.6 X10'3 (0-0.9); MONOCYTES % (AUTO) 9.8 % (2-12); NEUTROPHILS # (AUTO) 2.1 X10'3 (1.8-7.7); NEUTROPHILS % (AUTO) 36.5 % (42-75); PLATELET COUNT 179 X10'3 (140-440); RED BLOOD COUNT 3.87 X10'6 (4.20-5.60); WHITE BLOOD COUNT 5.7 X10'3 (4.5-11.0)
[2018-09-13 05:05] LABS: ANION GAP 8 (8-16); BLOOD UREA NITROGEN 17 MG/DL (7-18); BUN/CREATININE RATIO 25.8 (6.6-38.0); CALCIUM 8.4 MG/DL (8.5-10.1); CHLORIDE 106 MMOL/L (99-107); CREATININE 0.66 MG/DL (0.40-0.90); GLUCOSE 84 MG/DL (70-104); MAGNESIUM 1.9 MG/DL (1.5-2.4); PHOSPHORUS 4.2 MG/DL (2.3-4.5); POTASSIUM 3.8 MMOL/L (3.5-5.1); PROTHROMBIN TIME 10.1 SECONDS (9.0-12.0); SODIUM 141 MMOL/L (135-145); TOTAL CARBON DIOXIDE 26.8 MMOL/L (24-32); eGFR > 90 ML/MIN
--- NOTE | 2018-09-13 06:24 | NUR ---
Problems reprioritized. Patient report given, questions answered & plan of care reviewed with Erica WEINSTEIN.
--- NOTE | 2018-09-13 06:45 | NUR ---
Seizure activity Patient had an apparent seizure with decerebrate posturing consistent with previous episodes. Seizure activity was controlled with one dose Ativan Prn and postictal state lasted approx 5 minutes. Patient alert and able to answer questions following event.
[2018-09-13] MEDS: LORazepam 2 mg/ml vial IV PRN ×3 (06:47→21:46)
[2018-09-13] MEDS: budesonide 0.5mg/2ml UD nebule IH SCH ×2 (08:00→20:00)
[2018-09-13] MEDS: levetiracetam 250mg tablet PO SCH ×2 (08:12→19:41)
[2018-09-13] MEDS: HYDROcodone/acetaminophen 5mg/325mg tablet PO PRN ×2 (08:13→12:21)
[2018-09-13] MEDS: CITALOpram 10mg tablet PO SCH (08:13)
[2018-09-13] MEDS: topiramate 100mg tablet PO SCH (12:21)
[2018-09-13] MEDS ORDERED: TOP100T PO (14:34)
[2018-09-13] MEDS ORDERED: CITA10TA9 PO (14:34)
[2018-09-13] MEDS ORDERED: LEVE250T PO (14:34)
[2018-09-13] MEDS ORDERED: LORA2VIA4 IV (14:34)
--- NOTE | 2018-09-13 19:20 | NUR ---
Patient had seizure activity, contraction of upper limbs unresponsive, behavior consistent with previous episodes. Ativan given 2 mg IV at this time. Patient responsive and answering appropriately within 5 minutes.
--- NOTE | 2018-09-13 21:45 | NUR ---
Patient had seizure activity, contraction of upper limbs unresponsive, behavior consistent with previous episodes. Ativan given 2 mg IV at this time. Patient responsive and answering appropriately within 10 minutes. Remains very lethargic
[2018-09-14] VITALS (13 sets, daily range): BP systolic 97–161; BP diastolic 56–99
[2018-09-14] MEDS: LORazepam 2 mg/ml vial IV PRN ×3 (03:00→10:18)
--- NOTE | 2018-09-14 03:00 | NUR ---
Patient having seizure activity, given Ativan 2mg IV at this time. Activity similar to previous episodes. Extremely lethargic, able to answer appropriately, continuing to monitor closely
[2018-09-14 05:43] LABS: BASOPHILS % (AUTO) 0.5 % (0-1); EOSINOPHILS # (AUTO) 0.4 X10'3 (0-0.9); EOSINOPHILS % (AUTO) 6.9 % (0-6); HEMOGLOBIN 12.9 g/dl (12.0-16.0); LYMPHOCYTES # (AUTO) 2.1 X10'3 (1.1-4.8); LYMPHOCYTES % (AUTO) 37.7 % (21-51); MEAN CORPUSCULAR HEMOGLOBIN 32.3 PG (27.0-31.0); MEAN CORPUSCULAR HGB CONC 33.2 % (33.0-36.5); MEAN CORPUSCULAR VOLUME 97.3 FL (78-98); MEAN PLATELET VOLUME 9.5 FL (7.4-10.4); MONOCYTES # (AUTO) 0.6 X10'3 (0-0.9); MONOCYTES % (AUTO) 10.5 % (2-12); NEUTROPHILS # (AUTO) 2.5 X10'3 (1.8-7.7); NEUTROPHILS % (AUTO) 44.4 % (42-75); PLATELET COUNT 180 X10'3 (140-440); RED BLOOD COUNT 4.01 X10'6 (4.20-5.60); RED CELL DISTRIBUTION WIDTH 13.2 % (11.5-14.5); WHITE BLOOD COUNT 5.6 X10'3 (4.5-11.0)
[2018-09-14 05:51] LABS: PROTHROMBIN TIME 10.3 SECONDS (9.0-12.0)
[2018-09-14 05:56] LABS: ALBUMIN 3.1 G/DL (3.4-5.0); ANION GAP 8 (8-16); BLOOD UREA NITROGEN 19 MG/DL (7-18); BUN/CREATININE RATIO 30.6 (6.6-38.0); CALCIUM 8.6 MG/DL (8.5-10.1); CHLORIDE 106 MMOL/L (99-107); CREATININE 0.62 MG/DL (0.40-0.90); GLUCOSE 88 MG/DL (70-104); PHOSPHORUS 3.8 MG/DL (2.3-4.5); POTASSIUM 3.7 MMOL/L (3.5-5.1); SODIUM 140 MMOL/L (135-145); eGFR > 90 ML/MIN
--- NOTE | 2018-09-14 06:30 | NUR ---
Problems reprioritized. Patient report given, questions answered & plan of care reviewed with Feliz WEINSTEIN.
[2018-09-14] MEDS: budesonide 0.5mg/2ml UD nebule IH SCH (08:00)
[2018-09-14] MEDS: HYDROcodone/acetaminophen 10/325mg tab PO PRN (08:29)
[2018-09-14] MEDS: levetiracetam 250mg tablet PO SCH (08:29)
[2018-09-14] MEDS: CITALOpram 10mg tablet PO SCH (08:29)
[2018-09-14] MEDS: topiramate 100mg tablet PO SCH (08:29)
--- NOTE | 2018-09-14 12:04 | NUR ---
Patient wants to switch celexa back to pristiq. approved. Spoke with pharmacist to make the changes, and per pharmacist, we cant do this since the discharge summary is already finalized. I will relay the message to the nurse taking over at [facility]
== END 2018-09-14 13:00 | disposition short-term general hospital (02) | DRG 92 ==
LOC: ER 14:45 → ED HOLD 18:03 → CICU 2S 19:46
PROVIDERS: ADMIT Internal Medicine Critical Care Medicine; ATTEND Internal Medicine Critical Care Medicine
DX: T85.09XA Other mechanical complication of ventricular intracranial (communicating) shunt, initial encounter (principal); G91.9 Hydrocephalus, unspecified; G40.401 Other generalized epilepsy and epileptic syndromes, not intractable, with status epilepticus; J44.9 Chronic obstructive pulmonary disease, unspecified; F43.10 Post-traumatic stress disorder, unspecified; F32.9 Major depressive disorder, single episode, unspecified; E11.9 Type 2 diabetes mellitus without complications; I10 Essential (primary) hypertension; K21.9 Gastro-esophageal reflux disease without esophagitis; F12.90 Cannabis use, unspecified, uncomplicated; F41.9 Anxiety disorder, unspecified; H91.92 Unspecified hearing loss, left ear; G89.29 Other chronic pain; H53.9 Unspecified visual disturbance; Y75.3 Surgical instruments, materials and neurological devices (including sutures) associated with adverse incidents; R27.0 Ataxia, unspecified; Z98.2 Presence of cerebrospinal fluid drainage device; Z79.51 Long term (current) use of inhaled steroids; Z79.899 Other long term (current) drug therapy; Z88.1 Allergy status to other antibiotic agents; Z91.040 Latex allergy status; Z91.048 Other nonmedicinal substance allergy status; Z86.73 Personal history of transient ischemic attack (TIA), and cerebral infarction without residual deficits; Z82.5 Family history of asthma and other chronic lower respiratory diseases; Y92.89 Other specified places as the place of occurrence of the external cause
CPT/HCPCS: 36415; 70450; 70551; 71045; 80048; 80053; 80177; 81001; 82948; 83036; 83605; 83735; 84100; 84145; 85025; 85610; 85730; 87040; 93005; 94640; 94760; 96365; 96375; 99285; G0378; J1885; J1953; J2060; J2270; J2405; J7030; J7626; Q2009

== ENCOUNTER → 2019-04-17 | Day surgery (SDC) | payer MEDICARE, MEDICAID ==
[~2019-04-17] MED LIST changes: -ACYC200C PO; +CITA10TA9 PO; -DESV100T PO; +LEVE250T PO; -LISI10TA4 PO; +LORA2VIA4 IV; -METO5TAB98 PO; -VERA120T96 PO
== END | disposition home or self-care (01) ==
LOC: RAD 09:54
PROVIDERS: ATTEND Family Medicine
DX: M79.604 Pain in right leg (principal)
CPT/HCPCS: 73590

== ENCOUNTER 2019-09-08 19:33 | Emergency (ER) | payer MEDICARE, MEDICAID ==
[~2019-09-08] VITALS: Ht 167.6 cm; Wt 77.0 kg
[2019-09-08 21:15] LABS: BASOPHILS # (AUTO) 0.1 X10'3 (0-0.2); EOSINOPHILS # (AUTO) 0.4 X10'3 (0-0.9); EOSINOPHILS % (AUTO) 4.5 % (0-6); HEMATOCRIT 39.9 % (35.0-45.0); HEMOGLOBIN 13.2 g/dl (12.0-16.0); LYMPHOCYTES # (AUTO) 3.3 X10'3 (1.1-4.8); MEAN CORPUSCULAR HEMOGLOBIN 31.3 PG (27.0-31.0); MEAN CORPUSCULAR HGB CONC 33.1 g/dL (33.0-36.5); MEAN CORPUSCULAR VOLUME 94.6 FL (78-98); MEAN PLATELET VOLUME 9.1 FL (7.4-10.4); MONOCYTES # (AUTO) 0.9 X10'3 (0-0.9); MONOCYTES % (AUTO) 10.9 % (2-12); NEUTROPHILS # (AUTO) 3.6 X10'3 (1.8-7.7); NEUTROPHILS % (AUTO) 43.6 % (42-75); PLATELET COUNT 250 X10'3 (140-440); RED BLOOD COUNT 4.22 X10'6 (4.20-5.60); RED CELL DISTRIBUTION WIDTH 14.5 % (11.5-14.5); WHITE BLOOD COUNT 8.2 X10'3 (4.5-11.0)
[2019-09-08 21:26] LABS: ALANINE AMINOTRANSFERASE 20 U/L (12-78); ALBUMIN 3.7 G/DL (3.4-5.0); ALBUMIN/GLOBULIN RATIO 0.9 (1.1-1.5); ALKALINE PHOSPHATASE 105 IU/L (46-116); ANION GAP 12 (8-16); ASPARTATE AMINO TRANSFERASE 15 U/L (10-37); BILIRUBIN,TOTAL 0.2 MG/DL (0.1-1.0); BLOOD UREA NITROGEN 27 MG/DL (7-18); BUN/CREATININE RATIO 32.9 (6.6-38.0); CALCIUM 8.8 MG/DL (8.5-10.1); CHLORIDE 108 MMOL/L (99-107); CREATININE 0.82 MG/DL (0.40-0.90); GLUCOSE 115 MG/DL (70-104); POTASSIUM 3.7 MMOL/L (3.5-5.1); SODIUM 142 MMOL/L (135-145); TOTAL PROTEIN 7.6 G/DL (6.4-8.2); eGFR 70 ML/MIN
[2019-09-08 22:18] VITALS: BP 181/108
--- NOTE | 2019-09-08 22:19 | NUR ---
SHE HAS A REED ALL THE TIME. SHE HAD AN ANEURYSM CLIPPING IN January AND THIS COUGHING HAS MADE HER CONSTANT REED EVEN WORSE.
[2019-09-09] MEDS ORDERED: acetaminophen 325mg tablet PO STA (00:27)
--- NOTE | 2019-09-09 00:27 | NUR ---
Pt was in hallway she is upset that "no MD has seen her or told her to leave" Informed pt that I do not tell my patients' to leave. She said "well. I want something, maybe for my headache." I offered tylenol. She said ok so I ordered it.
[2019-09-09] MEDS ORDERED: ALBU6.7H9 INH (00:38)
[2019-09-09] MEDS ORDERED: PRED20TA PO (00:38)
[2019-09-09] MEDS ORDERED: albuterol 2.5 MG/3 ML nebule NEB ONE (00:40)
[2019-09-09] MEDS ORDERED: predniSONE 20 mg tablet PO ONE (00:40)
== END 2019-09-09 01:16 | disposition home or self-care (01) ==
LOC: ER 19:35
DX: J06.9 Acute upper respiratory infection, unspecified (principal); J40 Bronchitis, not specified as acute or chronic; I10 Essential (primary) hypertension; J45.909 Unspecified asthma, uncomplicated; E11.9 Type 2 diabetes mellitus without complications; G89.29 Other chronic pain; F32.9 Major depressive disorder, single episode, unspecified; F10.99 Alcohol use, unspecified with unspecified alcohol-induced disorder; F12.90 Cannabis use, unspecified, uncomplicated; Z86.73 Personal history of transient ischemic attack (TIA), and cerebral infarction without residual deficits; Z98.890 Other specified postprocedural states; Z87.891 Personal history of nicotine dependence; Z88.1 Allergy status to other antibiotic agents; Z91.040 Latex allergy status; Z88.8 Allergy status to other drugs, medicaments and biological substances; Z79.899 Other long term (current) drug therapy; Y90.9 Presence of alcohol in blood, level not specified
CPT/HCPCS: 36415; 71046; 80053; 83605; 85025; 87040; 93005; 94640; 99284; J7512; 94760